=== PATIENT | male | born 1985 | race Caucasian/White ===

== ENCOUNTER 2024-03-08 03:02 | Outpatient (CLI) | payer BC, SELFPAY ==
[2024-03-08 09:42] LABS: ALT 25 U/L (16-63); AST 23 U/L (15-37); Albumin 4.2 g/dL (3.4-5.0); Alkaline Phosphatase 54 U/L (46-116); Bilirubin, Direct 0.1 mg/dL (0.0-0.2); Bilirubin, Total 0.57 mg/dL (0.2-1.0); Total Protein 8.1 g/dL (6.4-8.2)
== END 2024-03-08 03:03 | disposition home or self-care (01) ==
LOC: LBO 03:02
PROVIDERS: PCP Family Medicine; Visit Provider Family Medicine
DX: B35.1 Tinea unguium (principal)
CPT/HCPCS: 36415; 80076

== ENCOUNTER 2024-11-09 03:32 | Outpatient (CLI) | payer BC, SELFPAY ==
[2024-11-09 09:18] LABS: Calculated LDL 109 mg/dL (<100); Cholesterol 198 mg/dL (<200); HDL Cholesterol 67 mg/dL (>or=40); Triglyceride 113 mg/dL (<150)
== END 2024-11-09 03:33 | disposition home or self-care (01) ==
LOC: LBO 03:32
PROVIDERS: PCP Family Medicine; Visit Provider Family Medicine
DX: Z13.6 Encounter for screening for cardiovascular disorders (principal)
CPT/HCPCS: 36415; 80061